=== PATIENT | male | born 1950 | race Caucasian/White ===

== ENCOUNTER → 2017-06-29 | Outpatient (CLI) | payer BC, OTHER ==
[~2017-06-29] MED LIST: AMLODIPINE BESYL5 MG; AUGMENTIN 875875 M1 PO; AUGMENTIN 875875 MG PO; BENADRYL25 MG PO; CALCIUM 600 +1 EA11 PO; CENTRUM SILVER1 EAC4 PO; CIPROFLOXACIN500 M1; COLACE100 MG PO; FISH OIL + D31 EACH PO; FISH OIL 1,0001 EAC5 PO; FISH OIL 1,001000 M2 PO; GARLIC OIL1 EACH PO; GARLIC1 EACH PO; HYDROCODON-ACE1 EAC7 PO; HYDROCODONE-AP1 EAC6 PO; IRON159 MG; IRON325 PO; K-DUR 20 MEQ T20 MEQ PO; K-DUR10 MEQ; LEVSIN-SL0.125 MG SL; LISINOPRIL10 MG; LISINOPRIL40 MG PO; LORTAB 5 MG/5001 TAB; MAGNESIUM250 M1 PO; MULTI VITAMIN1 EACH PO; MULTIVITAMINS1 EAC7; NIACIN 100MG T100 M1; NIACIN 500 MG500 M1 PO; NORVASC10 MG PO; PEPCID AC20 M1 PO; PEPCID COMPLET1 EACH PO; PERCOCET PO; PRILOSEC 20 MG20 MG PO; VITAMIN D10000 UNIT PO; VITAMIN D35000 UNI1 PO; VITAMIN D400 UNI1
== END ==
LOC: CAT 16:29
DX: R41.3 Other amnesia (principal)

== ENCOUNTER 2017-12-04 19:31 | Emergency (ER) | payer OTHER, BC ==
[~2017-12-04] VITALS: Ht 167.6 cm; Wt 104.3 kg
[2017-12-04] MEDS ORDERED: CENTRUM SILVER1 EAC2 PO (20:47)
[2017-12-04] MEDS ORDERED: IBUPROFEN 600600 M1 PO (21:12)
[2017-12-04] MEDS ORDERED: TIZANIDINE HCL4 MG PO (21:13)
[2017-12-04 21:24] VITALS: BP 151/76
== END 2017-12-04 21:25 | disposition home or self-care (01) ==
LOC: ER 19:31
DX: S00.93XA Contusion of unspecified part of head, initial encounter (principal); M54.5 Low back pain; I10 Essential (primary) hypertension; K21.9 Gastro-esophageal reflux disease without esophagitis; Z87.442 Personal history of urinary calculi; Z86.2 Personal history of diseases of the blood and blood-forming organs and certain disorders involving the immune mechanism; V49.49XA Driver injured in collision with other motor vehicles in traffic accident, initial encounter; Y93.89 Activity, other specified; Y92.89 Other specified places as the place of occurrence of the external cause; Y99.8 Other external cause status

== ENCOUNTER → 2018-09-26 | Outpatient (CLI) | payer BC, OTHER ==
[~2018-09-26] VITALS: Ht 167.6 cm; Wt 104.3 kg
[~2018-09-26] MED LIST changes: +CENTRUM SILVER1 EAC2 PO; +IBUPROFEN 600600 M1 PO; +TIZANIDINE HCL4 MG PO; +VENTOLIN HFA 1818 GM INH
--- NOTE | ~2018-09-26 | P ---
[facility] [place] [address] PROCEDURE REPORT Name: ALBA BANEGAS Room #: REG [facility] [id number] Admission: 09/26/18 Attend Phys: Ramo Arias Discharge: Date of : 52 Report #: [id number] THIS REPORT FOR: //name// CC: Ramo Evans MD DATE OF SERVICE: 09/26/2018 PROCEDURE PERFORMED: Upper endoscopy with biopsies and esophageal dilation. HISTORY OF PRESENT ILLNESS: The patient is a 68-year-old male with a history of gastroesophageal reflux disease, currently taking omeprazole 20 mg per day. In general, controls his heartburn symptoms quite well. He does report intermittent dysphagia. He has had a previous upper endoscopy by myself showing grade B erosive esophagitis pre-PPI therapy, was not having dysphagia at that time. Biopsies at that time were negative for Bailey's. Plan is for EGD with esophageal dilation. The patient has also had a previous gastric bypass surgery for weight loss. DESCRIPTION OF PROCEDURE: The risks and benefits of the procedure were explained to the patient, those risks including but not limited to bleeding, perforation and the risk of sedation. He understood these risks and gave informed consent. Sedation was given using propofol per anesthesia. Next, using a standard Olympus upper endoscope, the scope was placed in the patient's mouth and advanced under direct vision through the esophagus, stomach and into the duodenum. The larynx was normal in appearance. The upper and mid esophagus was normal. 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 Biopsies were obtained. No evidence of esophagitis or stricture. Upon entering the stomach, a small hiatal hernia was noted. Surgical change of the stomach was noted. The pylorus was normal and patent. In the duodenal bulb region, there were surgical changes noted in this area as well. I was able to advance the scope well into the duodenum. The mucosa was all normal. At this point, the scope was then brought back up into the patient's stomach and a Savary guidewire was inserted through the scope, leaving the guidewire in place as the scope was then withdrawn. Next, a 48-Turkmen Savary dilation of the esophagus was then performed without difficulty. The wire and dilator were removed. The scope was reintroduced into the patient's stomach. There was no evidence of mucosal tear after dilation. The scope was then withdrawn and the procedure terminated. The patient tolerated the procedure well. IMPRESSION: 1. 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 2. Small hiatal hernia. 3. Surgical changes of the stomach and the duodenum noted as above. [facility] [address] [place] [address] PROCEDURE REPORT Name: ALBA BANEGAS Room #: REG CARMELA Williamson#: [id number] Admission: 09/26/18 Attend Phys: Ramo Arias Discharge: Date of : 52 Report #: [id number] RECOMMENDATIONS: 1. Await biopsy results. 2. Continue daily PPI therapy. 3. Observe the patient post-dilation. Thank you for allowing me to participate in his care. <ELECTRONICALLY SIGNED> By: Ramo Preston MD 09/26/18 1152 0948 1055 Ramo Preston MD /nt
--- NOTE | ~2018-09-26 | PATH ---
[facility] [address] [place] [address] PATHOLOGY RPT PROCEDURE Name: ALBA COBB Room #: REG CARMELA MFawad.#: [id number] Admission: 09/26/18 Date of : 52 Discharge: Report #: [id number] Path Case #: [id number] [facility] Accession Number: [id number] . 01 Material submitted: . BX OF DISTAL ESOPHAGUS R/O BARRETTS . 01 Clinical history: . Pre-OP DX: Reflux, dysphagia Post-OP DX: Dysphagia, gastroesophageal reflux . 02 Diagnosis: Gastroesophageal mucosa, distal esophagus, rule out Bailey's, endoscopic biopsy: - Fundic gastric mucosa with moderate chronic inflammation. - Negative for intestinal metaplasia or dysplasia. - Squamous mucosa with mild esophagitis. (IUV:mold preparer; 09/27/2018) MBR/09/27/2018 . 02 Electronically signed: . Fiorella Hale MD, Pathologist NPI- [id number] . 01 Gross description: . Received in formalin labeled "Alba Cobb, BX distal esophagus, rule out Bailey's," are 3 segments of delgado soft tissue measuring 0.6 x 0.4 x 0.4 cm in aggregate dimensions and ranging from 0.2 to 0.5 cm in maximum dimension. The specimen is submitted entirely in cassette A1. (TSD; 09/26/2018) TOB/TOB . 02 Pathologist provided ICD-10: K20.9 . 02 CPT . 143962 Specimen Comment: A courtesy copy of this report has been sent to Specimen Comment: [phone], . Specimen Comment: Report sent to and Performed at: [address] [id number] MD Jose Daniel Baugh MD Phone: [phone] Performed at: [address] [id number] [address] [address] PATHOLOGY RPT PROCEDURE Name: MAKENZIEALBA MONTEREY Room #: REG CARMELA Rader.Mike.#: [id number] Admission: 09/26/18 Date of : 52 Discharge: Report #: [id number] Path Case #: [id number] MD Fiorella Hale MD Phone: [phone]
== END | disposition home or self-care (01) ==
LOC: GI 07:44
DX: K20.9 Esophagitis, unspecified (principal); K21.9 Gastro-esophageal reflux disease without esophagitis; K44.9 Diaphragmatic hernia without obstruction or gangrene; I10 Essential (primary) hypertension; D64.9 Anemia, unspecified; Z87.442 Personal history of urinary calculi; Z86.711 Personal history of pulmonary embolism; Z79.01 Long term (current) use of anticoagulants; Z98.84 Bariatric surgery status; Z98.52 Vasectomy status; Z98.890 Other specified postprocedural states; Z79.899 Other long term (current) drug therapy

== ENCOUNTER → 2018-10-25 | Outpatient (CLI) | payer OTHER | LOC: CAT 10:41 | DX: Z13.6 Encounter for screening for cardiovascular disorders (principal); E78.00 Pure hypercholesterolemia, unspecified; Z82.49 Family history of ischemic heart disease and other diseases of the circulatory system ==

== ENCOUNTER → 2018-11-27 | Outpatient (CLI) | payer BC, OTHER ==
--- NOTE | 2018-11-27 12:59 | EXE ---
[facility] [place] [address] STRESS ECHOCARDIOGRAM Name: ALBA BANEGAS Room #: REG CL Teri#: [id number] ������������� Admission: 11/27/18 ������������� Attend Phys: Rob Andersen, Discharge: ��� ������������� ��� Date of : 52 Date of Service: 11/27/18 1258 �� Report #: [id number] �������� ��������������������������������������������[id number] THIS REPORT FOR: //name// APPROVED REPORT Study performed: 11/27/2018 11:23:26 Exam: Stress Echocardiogram Indication: CAD Patient Location: Out-Patient Stress Nurse: Benita Mckeon RN Room #: Echo lab 2 Status: routine Ht: 5 ft 4 in HR: 70 bpm BP: 152/92 mmHg Rhythm: NSR Medical History Medical History: HTN, Hyperlipidemia, CAD Allergies: No known drug allergies Cardiac Risk Factors: HTN, Hyperlipidemia, FHX of CAD Exercise History: Sedentary Procedure The patient underwent an Exercise Stress Test using the Modified Leonid Protocol. Blood pressure, heart rate, and EKG were monitored. An Echocardiogram was performed by systems testing laboratory technician in four stages in quad fashion. At peak stress, four selected images were obtained and placed side by side with resting images for comparison. Stress Test Details Stress Test: Exercise stress testing was performed using a modified Leonid protocol. HR Resting HR: 70 bpm Max Heart Rate (APMHR): 153 bpm Max HR Achieved: 146 bpm Target HR (85% APMHR): 130 bpm % of APMHR: 95 Recovery HR: 81 bpm HR response to stress: Normal HR response to stress BP Resting BP: 152/92 mmHg Max BP: 168/[address] [facility] [address] [place] [address] STRESS ECHOCARDIOGRAM Name: ALBA BANEGAS KALYN Room #: REG CL Teri#: [id number] ������������� Admission: 11/27/18 ������������� Attend Phys: Rob Andersen, Discharge: ��� ������������� ��� Date of : 52 Date of Service: 11/27/18 1258 �� Report #: [id number] �������� ��������������������������������������������[id number] Recovery BP: 162/82 mmHg BP response to stress: Normal blood pressure response to stress. ECG Resting ECG: Sinus Rhythm Stress ECG: Sinus Rhythm ST Change: Normal Maximum ST Deviation: 0 mm Arrhythmia: APC's, VPC's Recovery ECG: Sinus Rhythm Recovery ST Change: Normal Recovery ST Deviation: 0 mm Recovery Arrhythmia: None Clinical Reason for Termination: Maximal effort Exercise duration: 7 min sec Highest Stage Achieved: Stage 2: 2.5 mph at 12% grade. Exercise capacity: 6.1 METs Overall Exercise Capacity for Age: Poor Angina Score: None Stress ECG Conclusion Nichols Treadmill Score is 7.0 which is Low risk. Pre-Stress Echo The resting Echocardiogram showed normal left ventricular contractility with an estimated Ejection Fraction of about >55%. Normal wall motion in all segments on baseline images. Post-Stress Echo The stress Echocardiogram showed normal left ventricular contractility with an estimated Ejection Fraction of about 65-70%. Normal augmentation of wall motion in all segments on post stress images. Clinical Normal augmentation of myocardial wall segments using a 17 segment model. Conclusion Clinical Response: Non-ischemic Exercise Capacity: Average Stress ECG Response: Non-ischemic Stress Echo Images: Non-ischemic The left ventricle is normal in size and wall thickness in both the [facility] [address] [place] [address] STRESS ECHOCARDIOGRAM Name: ALBA BANEGAS Room #: REG CL [facility]#: [id number] ������������� Admission: 11/27/18 ������������� Attend Phys: Rob Andersen, Discharge: ��� ������������� ��� Date of : 52 Date of Service: 11/27/18 1258 �� Report #: [id number] �������� ��������������������������������������������[id number] rest and stress images. Normal stress echocardiogram with maximal exercise stress. No prior study available for comparison. Other Information Study Quality: Fair <Conclusion> The left ventricle is normal in size and wall thickness in both the rest and stress images. Normal stress echocardiogram with maximal exercise stress. ��������������������������������������������� <ELECTRONICALLY SIGNED> ���������������������������������������� By: Rob Andersen MD, FACC ��������������������������������������������� 11/27/18 1258 1258 57 Rob Andersen MD, FACC /INF
== END ==
LOC: CV 06:32
DX: I25.10 Atherosclerotic heart disease of native coronary artery without angina pectoris (principal); I10 Essential (primary) hypertension; E78.5 Hyperlipidemia, unspecified

== ENCOUNTER → 2019-11-11 | Outpatient (CLI) | payer BC, OTHER | LOC: SJCVC 15:42 | DX: R93.1 Abnormal findings on diagnostic imaging of heart and coronary circulation (principal); I10 Essential (primary) hypertension; E78.5 Hyperlipidemia, unspecified; Z86.711 Personal history of pulmonary embolism; Z72.89 Other problems related to lifestyle ==

== ENCOUNTER → 2020-11-19 | Outpatient (CLI) | payer BC, OTHER | LOC: SJCVC 11:21 | PROVIDERS: ATTEND Internal Medicine | DX: R93.1 Abnormal findings on diagnostic imaging of heart and coronary circulation (principal); I10 Essential (primary) hypertension; E78.5 Hyperlipidemia, unspecified; I70.0 Atherosclerosis of aorta; Z86.711 Personal history of pulmonary embolism; Z72.89 Other problems related to lifestyle; Z79.899 Other long term (current) drug therapy; Z98.890 Other specified postprocedural states ==

== ENCOUNTER → 2021-11-19 | Outpatient (CLI) | payer OTHER, MEDICARE | LOC: SJCVCIMAG 08:58 | PROVIDERS: ATTEND Internal Medicine | DX: I65.23 Occlusion and stenosis of bilateral carotid arteries (principal); I77.819 Aortic ectasia, unspecified site; R93.1 Abnormal findings on diagnostic imaging of heart and coronary circulation; I10 Essential (primary) hypertension; E78.5 Hyperlipidemia, unspecified; I70.0 Atherosclerosis of aorta; Z86.711 Personal history of pulmonary embolism; Z72.89 Other problems related to lifestyle; Z79.899 Other long term (current) drug therapy; Z86.16 Personal history of COVID-19; Z82.49 Family history of ischemic heart disease and other diseases of the circulatory system ==